=== PATIENT | female | born 1995 | race Two or more races ===

== ENCOUNTER 2017-10-27 22:16 | Emergency (ER) | payer MEDICAID ==
[~2017-10-27] VITALS: Ht 152.4 cm; Wt 58.5 kg
[2017-10-27 22:16] VITALS: BP 142/81
[2017-10-27] MEDS ORDERED: LORazepam Inj 2mg/ml 1ml IM ONE (22:30)
[2017-10-27] MEDS ORDERED: AMITRIPTYLINE25 MG ORAL (23:04)
[2017-10-27] MEDS ORDERED: ATIVAN0.5 MG ORAL (23:04)
--- NOTE | 2017-10-27 23:04 | Emergency Room Report ---
History of Present Illness General Chief Complaint: Headache Source: Patient, Medical Record, EMS Present Illness HPI Is a 22-year-old female with history of anxiety. She presents with chief complaint of body numbness and shortness of breath and headache has been on and off for the last 3 days. [place] numb. No nausea no vomiting. No fever chills. Similar symptom in the past but this is worse. Denies any suicidal thoughts homicidal thought. No alcohol drugs. Came in by EMS. Allergies: Coded Allergies: No Known Allergies (Unverified , 10/27/17) Patient History Past Medical History: see triage record, old chart reviewed, psych hx Past Surgical History: other Pertinent Family History: none Social History: Denies: smoking Last Menstrual Period: 09/26/17 Now: No Immunizations: other Reviewed Nursing Documentation: PMH: Agreed; PSxH: Agreed Nursing Documentation-PMH Past Medical History: No Stated History Review of Systems Eye: Denies: eye pain, blurred vision ENT: Denies: ear pain, nose congestion, throat swelling Respiratory: Reports: shortness of breath; Denies: cough Cardiovascular: Reports: palpitations; Denies: chest pain Gastrointestinal: Denies: abdominal pain, diarrhea, nausea, vomiting Musculoskeletal: Denies: back pain, joint pain Skin: Denies: rash Neurological: Denies: headache, numbness Endocrine: Denies: increased thirst, increased urine Hematologic/Lymphatic: Denies: easy bruising All Other Systems: negative except mentioned in HPI Physical Exam Vital Signs Date Time Temp Pulse Resp B/P (MAP) Pulse Ox O2 Delivery O2 Flow Rate FiO2 10/27/17 22:01 99.0 114 24 142/81 99 Room Air 99.0 vitals with tachycardia Sp02 EP Interpretation: reviewed, normal General Appearance: well appearing, no apparent distress, alert Head: normocephalic, atraumatic Eyes: bilateral eye PERRL, bilateral eye EOMI ENT: hearing grossly normal, normal pharynx Neck: full range of motion, supple, no meningismus Respiratory: chest non-tender, lungs clear, normal breath sounds Cardiovascular #1: regular rate, rhythm, no murmur Gastrointestinal: normal bowel sounds, non tender, no mass, no organomegaly, no bruit, non-distended Musculoskeletal: back normal, gait/station normal, normal range of motion Psychiatric: anxious Skin: warm/dry Medical Decision Making Diagnostic Impression: Primary Impression: Panic attack ER Course Patient presents with anxiety/panic attack. Better after Ativan. No evidence of ACS, PE, dissection. No evidence of suicidal thoughts. her for 0. We' ll discharge home. Last Vital Signs Date Time Temp Pulse Resp B/P (MAP) Pulse Ox O2 Delivery O2 Flow Rate FiO2 10/27/17 22:16 99.0 24 142/81 99 Room Air 99.0 10/27/17 22:01 114 Status: improved Disposition: HOME, SELF-CARE Condition: Stable Scripts Lorazepam* (ATIVAN*) 0.5 Mg Tablet 0.5 MG ORAL THREE TIMES A DAY for anxiety, #15 TAB Prov: FELICE SCHNEIDER M.D. 10/27/17 Amitriptyline HCl (ELAVIL*) 25 Mg Tablet 25 MG ORAL BEDTIME, #30 TAB Prov: FELICE SCHNEIDER M.D. 10/27/17 Additional Instructions: Follow-up with your doctor in 7 days. You may benefit from referral to see a psychologist/psychiatrist. Return if symptom worsen. FELICE SCHNEIDER M.D. Oct 27, 2017 23:04
[2017-10-27 23:12] VITALS: BP 142/81
== END 2017-10-28 00:55 | disposition home or self-care (01) ==
LOC: EDBD 22:16 → EMR 10-28 00:17
DX: F41.0 Panic disorder [episodic paroxysmal anxiety] (principal)
CPT/HCPCS: 96372; 99283